=== PATIENT | male | born 1955 | race Caucasian/White ===

== ENCOUNTER 2021-08-23 04:10 | Emergency (ER) | payer MEDICARE, SELFPAY ==
--- NOTE | ~2021-08-23 | XR_ITS ---
EXAMINATION: XR PELVIS XR HIP, LEFT CLINICAL INFORMATION: Left-sided pain. COMPARISON: None TECHNIQUE: AP view of the pelvis. AP and frog leg lateral views of the left hip. FINDINGS: PELVIS: No acute fracture or dislocation. Mild right hip joint space narrowing with marginal osteophytes. Surgical clips within the pelvis and within the scrotum. Bilateral sacroiliac joint degenerative arthritis. No concerning lytic or blastic osseous lesion. LEFT HIP: No acute fracture or dislocation. Mild joint space narrowing with small marginal osteophytes. Lobulated calcification adjacent to the greater trochanter consistent with gluteus calcific tendinitis. XR/XR pelvis 1-2V IMPRESSION: Pelvis: No acute fracture or dislocation. Mild right hip osteoarthritis. Degenerative arthrosis of the sacroiliac joints. Left hip: No acute fracture or dislocation. Calcific tendinitis adjacent to the greater trochanter.
--- NOTE | ~2021-08-23 | XR_ITS ---
EXAMINATION: XR PELVIS XR HIP, LEFT CLINICAL INFORMATION: Left-sided pain. COMPARISON: None TECHNIQUE: AP view of the pelvis. AP and frog leg lateral views of the left hip. FINDINGS: PELVIS: No acute fracture or dislocation. Mild right hip joint space narrowing with marginal osteophytes. Surgical clips within the pelvis and within the scrotum. Bilateral sacroiliac joint degenerative arthritis. No concerning lytic or blastic osseous lesion. LEFT HIP: No acute fracture or dislocation. Mild joint space narrowing with small marginal osteophytes. Lobulated calcification adjacent to the greater trochanter consistent with gluteus calcific tendinitis. XR/XR hip LT min 2V IMPRESSION: Pelvis: No acute fracture or dislocation. Mild right hip osteoarthritis. Degenerative arthrosis of the sacroiliac joints. Left hip: No acute fracture or dislocation. Calcific tendinitis adjacent to the greater trochanter.
[2021-08-23 04:30] VITALS: BP 175/83; PULSE 60; RESP 16; TEMP 35.7; O2SAT 99; BMI 25.3
--- NOTE | 2021-08-23 06:36 | ED.BACK ---
HPI - Back Pain/Injury General Chief Complaint: Back Pain/Injury Stated Complaint: L side pain, inj Time Seen by Provider: 08/23/21 06:35 Source: patient Mode of arrival: ambulatory Limitations: no limitations History of Present Illness MD elicited complaint: back injury Pertinent past history: recent trauma Onset (ago): day(s) (Monday ) Timing: constant Severity: moderate Similar Symptoms Previously: No Quality: sharp Location: left flank (on hip area) Exacerbating factors: movement and walking Relieving factors: immobilization Context: other (walked into a machine on Monday has a bruise on L hip area states the pain just gets worse) Associated symptoms: difficulty walking Work related injury: Yes Related Data Previous Rx's Medication Instructions Recorded cyclobenzaprine 10 mg tablet 10 mg PO TID PRN #14 tab 08/23/21 hydrocodone 5 mg-acetaminophen 325 1 tab PO Q6H PRN #6 tab 08/23/21 mg tablet ibuprofen 600 mg tablet 600 mg PO Q6H PRN #30 tab 08/23/21 lidocaine 5 % topical patch 1 patch TOPICAL DAILY #30 ea 08/23/21 Allergies Allergy/AdvReac Type Severity Reaction Status Date / Time No Known Allergies Allergy Verified 08/23/21 04:34 Review of Systems Review of Systems: Constitutional : No Weight loss, No Fever, No Chills, ENT/Mouth : No Hearing loss, No Ear Pain, No Nasal Congestion, No Sinus Pain, No Hoarseness, No sore throat, No Rhinorrhea, No Swallowing Difficulty Cardiovascular : No Chest Pain, No SOB Respiratory : No Cough, No Dyspnea Gastrointestinal : No Nausea, No Vomiting, No Diarrhea, No abdominal Pain, No Hematochezia, No Melena Genitourinary : No Dysuria, No Urinary Frequency, No Hematuria, No Urinary Incontinence, Musculoskeletal : positive back pain Skin : No Skin Lesions, No rash Neuro : No Weakness, No Numbness, No Paresthesias, no loss of bowel or bladder incontinence, no saddle anesthesia [facility] Past Medical History Attestation statement: The following information was validated with the patient. Medical History HLD (hyperlipidemia) HTN (hypertension) Social History Social History (Updated 08/23/21 @ 07:06 by Hyacinth Mccullough DO) Patient Tobacco Use Status: Current someday Tobacco user Advance Directives: No Physical Exam Vital Signs: Vital Signs: Last Vital Signs Temp 96.3 F L 08/23/21 04:30 Pulse 60 08/23/21 04:30 Resp 16 08/23/21 04:30 BP 175/83 H 08/23/21 04:30 Pulse Ox 99 08/23/21 04:30 BMI result Body Mass Index 25.3 Appearance: Alert. Oriented X3. No acute distress. Eyes: Pupils equal, round and reactive to light. ENT: Pharynx normal. Neck: Normal inspection. Neck supple. CVS: Normal heart rate and rhythm. Pulses normal. Respiratory: No respiratory distress. Breath sounds normal. Abdomen: Soft and nontender. Back: L iliac crest bruise noted very small yellow brown it is not large feeling and area above and below non tender no signs of infection, the bone itself is ttp, palpation reproduces pain Skin: Skin warm and dry. Normal skin color. Normal skin turgor. Extremities: No lower extremity edema. No calf ttp Neuro: Oriented X 3. No motor deficit. No sensory deficit. Course Course Course Narrative: no acute fractures MDM - Back Pain/Injury MDM Narrative Medical decision making narrative: 65 yo male with hx of HTN, HLD not on blood thinners no IVDA reports walking into a large machine at work on Monday striking L hip area (iliac crest has bruise to it) since then the pain has gotten worse and it radiates around not responding to OTC medications. He is NV intact. He is not toxic. Will obtain xray of R hip and treat pain suspect bone bruise vs avulsion fracture. Doubt intra abd pathology given bruise is right on the bone itself and he is not on blood thinners as well as this occurred almost 1 week ago Discharge Plan Discharge Clinical Impression: Contusion of hip Qualifiers: Encounter type: initial encounter Laterality: left Qualified Code(s): S70.02XA - Contusion of left hip, initial encounter Patient Disposition: Home, Self-Care Instructions: Hip Contusion (ED) Additional Instructions: return to ED for any worsening symptoms or concerns Pelvis: No acute fracture or dislocation. Mild right hip osteoarthritis. Degenerative arthrosis of the sacroiliac joints. ? Left hip: No acute fracture or dislocation. Calcific tendinitis adjacent to the greater trochanter. possible tendonitis is bothering you but most likely contusion Prescriptions: New cyclobenzaprine 10 mg tablet 10 mg PO TID PRN (Reason: muscle spasm) Qty: 14 0RF hydrocodone-acetaminophen 5-325 mg tablet 1 tab PO Q6H PRN (Reason: pain) Qty: 6 0RF Rx Instructions: partial fill okay ibuprofen 600 mg tablet 600 mg PO Q6H PRN (Reason: pain) Qty: 30 0RF lidocaine 5 % adhesive patch,medicated 1 patch topical DAILY Qty: 30 0RF Rx Instructions: leave on most painful area for up to 12 hrs Referrals: Physician,Unknown J [Primary Care Provider] - (PCP if not better in 2 days) Stand Alone Forms: Work/School Release Interventions: ED Discharge Assessment Last Done: 08/23/21 08:50 Discharge Date/Time: 08/23/21 08:52
[2021-08-23] MEDS: Lidocaine 4 % Patch ADH..PATCH 1 PATCH TRANSDERMA (07:28)
[2021-08-23] MEDS: Cyclobenzaprine HCl 10 MG TABLET PO (07:28)
== END 2021-08-23 08:52 | disposition home or self-care (01) ==
PROVIDERS: Emergency Provider Emergency Medicine
DX: S70.02XA Contusion of left hip, initial encounter (principal); M25.552 Pain in left hip; Y29.XXXA Contact with blunt object, undetermined intent, initial encounter; Y93.9 Activity, unspecified; Y92.9 Unspecified place or not applicable; Y99.9 Unspecified external cause status; F17.200 Nicotine dependence, unspecified, uncomplicated; Z71.6 Tobacco abuse counseling; Z79.899 Other long term (current) drug therapy
CPT/HCPCS: 72170; 73502; 99282; 99283